=== PATIENT | female | born 1925 | race Caucasian/White ===

== ENCOUNTER 2016-06-13 10:55 | Outpatient (CLI) | payer MEDICARE, OTHER | END 2016-06-13 10:56 | disposition home or self-care (01) | DX: M19.032 Primary osteoarthritis, left wrist (principal) ==

== ENCOUNTER 2016-07-02 | Outpatient (CLI) | payer MEDICARE, OTHER | END 2016-07-02 21:27 | disposition critical access hospital (66) | CPT/HCPCS: A0425; A0429 ==

== ENCOUNTER 2016-07-02 21:50 | Emergency (ER) | payer MEDICARE, OTHER ==
[2016-07-03] MEDS ORDERED: LOPERAMIDE 2 MG CAPSULE PO STA (00:37)
[2016-07-03] MEDS ORDERED: ACETAMINOPHEN 325 MG TABLET PO STA (00:38)
[2016-07-03] MEDS ORDERED: OSELTAMIVIR 75 MG CAPSULE PO STA (00:38)
[2016-07-03] MEDS ORDERED: LOPERAMIDE 2 MG CAPSULE PO ONE (00:39)
[2016-07-03] MEDS ORDERED: OSELTAMIVIR 75 MG CAPSULE PO ONE (00:39)
[2016-07-03] MEDS ORDERED: ACETAMINOPHEN 325 MG TABLET PO ONE (00:39)
== END 2016-07-03 00:50 | disposition home or self-care (01) ==
DX: J10.1 Influenza due to other identified influenza virus with other respiratory manifestations (principal); R19.7 Diarrhea, unspecified; I10 Essential (primary) hypertension
CPT/HCPCS: 36415; 80053; 83690; 85025; 85610; 85730; 87045; 87046; 87070; 87275; 87276; 87430; 99283; A9270

== ENCOUNTER 2016-07-24 14:53 | Emergency (ER) | payer MEDICARE, OTHER ==
[2016-07-24] MEDS ORDERED: KETOROLAC 60 MG/2 ML VIAL IVP STA (15:36)
[2016-07-24] MEDS ORDERED: ACETAMINOPHEN 325 MG TABLET PO STA (15:37)
[2016-07-24] MEDS ORDERED: MORPHINE 2 MG/ML SYRINGE IVP STA (15:38)
[2016-07-24] MEDS ORDERED: KETOROLAC 30 MG/ML VIAL ONE (16:12)
[2016-07-24] MEDS ORDERED: MORPHINE 2 MG/ML SYRINGE ONE (16:12)
[2016-07-24] MEDS ORDERED: ACETAMINOPHEN 325 MG TABLET PO ONE (16:13)
[2016-07-24] MEDS ORDERED: ONDANSETRON 4 MG/2 ML VIAL IVP STA (16:21)
[2016-07-24] MEDS ORDERED: ONDANSETRON 4 MG/2 ML VIAL ONE (16:22)
[2016-07-24] MEDS ORDERED: fentaNYL 100 MCG/2 ML VIAL IVP STA (17:10)
[2016-07-24] MEDS ORDERED: DEXAMETHASONE 10 MG/ML VIAL IVP STA (17:11)
[2016-07-24] MEDS ORDERED: fentaNYL 100 MCG/2 ML VIAL ONE (17:23)
[2016-07-24] MEDS ORDERED: DEXAMETHASONE 10 MG/ML VIAL ONE (17:25)
== END 2016-07-24 17:59 | disposition home or self-care (01) ==
DX: R51 Headache (principal); I10 Essential (primary) hypertension; K21.9 Gastro-esophageal reflux disease without esophagitis; M19.90 Unspecified osteoarthritis, unspecified site
CPT/HCPCS: 36415; 70450; 72125; 80053; 83690; 85025; 85651; 96374; 96375; 99284; A9270